=== PATIENT | female | born 1955 | race Hispanic/Latino ===

== ENCOUNTER → 2025-07-15 | Outpatient (REF) | payer MEDICARE ==
[~2025-07-15] MED LIST: REGADENOSON 0.4 MG/5 ML SYR IV ONE
== END ==
LOC: NM 09:27
PROVIDERS: ATTEND Internal Medicine Cardiovascular Disease
DX: R07.9 Chest pain, unspecified (principal)
CPT/HCPCS: 78452; 93017; A9502; J2785